=== PATIENT | male | born 1970 | race Caucasian/White ===

== ENCOUNTER 2017-12-09 16:59 | Inpatient (IN) ==
[2017-12-09] MEDS ORDERED: PHENobarb/HYOSCY/ATROPINE/SCOP 1 DOSE BOTTLE PO ONE (17:33)
--- NOTE | 2017-12-09 17:42 | Emergency Department Note ---
Chest Pain HPI - General Chief Complaint: Chest Pain Stated Complaint: Chest pain Time Seen by Provider: 12/09/17 17:00 Source: patient Mode of arrival: ambulatory Limitations: no limitations - History of Present Illness HPI Narrative: 47-year-old male presents with epigastric/chest pain more centralized 1-2 weeks. He states about a week ago he took a couple of days off of work because he was having pain and states that it comes and goes. He states today he noticed this morning that his pain was worse. He ate breakfast and took all of his pills and then vomited. He states it is pretty consistent today. It does not get worse with exertion. 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 He points to a bandlike epigastric pain. He has had some allergies recently and apparently had diarrhea yesterday that was foul-smelling according to his mother. He also has some nasal congestion and a mild cough. He has hypertension and is diabetic. He is on multiple medications for both. He also takes omeprazole. He states it is hard to sleep on his right side because he has right-sided pain when he sleeps - Related Data Home Medications Medication Instructions Recorded Confirmed Cholecalciferol (Vitamin D3) 2,000 unit PO DAILY 12/09/17 12/09/17 [Vitamin D] Diltiazem [Cardizem] 60 mg PO DAILY 12/09/17 12/09/17 Lisinopril [Zestril] 5 mg PO DAILY 12/09/17 12/09/17 Metoprolol Succinate [Toprol Xl] 25 mg PO DAILY 12/09/17 12/09/17 Omeprazole [PriLOSEC] 20 mg PO ACB 12/09/17 12/09/17 Pravastatin Sodium [Pravachol] 40 mg PO DAILY 12/09/17 12/09/17 Saxagliptin HCl [Onglyza] 5 mg PO DAILY 12/09/17 12/09/17 glipiZIDE [Glucotrol] 5 mg PO BIDAC 12/09/17 12/09/17 metFORMIN [Glucophage] 1,000 mg PO BIDCC 12/09/17 12/09/17 Allergies Allergy/AdvReac Type Severity Reaction Status Date / Time Penicillins Allergy Unknown Unknown Verified 12/09/17 17:05 Review of Systems All systems ED: reviewed and negative except as stated. Chest Pain PMH - Past Medical History Medical history: Reports: DM, hyperlipidemia, hypertension Surgical history ED: Reports: non-contributory Psychiatric history: Reports: no psych history Prior Cardiac Testing/Procedures: Stress Test (Last year) Family history: Reports: no significant family history - Social History smoking status: Former smoker Physical Exam Limitations: no limitations General appearance: alert, in no apparent distress Head: atraumatic Eye: Present: scleral icterus (mild) Neck: Present: normal inspection, full ROM Chest: Present: normal inspection, symmetric chest wall rise. Absent: tenderness Respiratory: Present: normal lung sounds bilaterally Cardiovascular: Present: regular rate, normal heart sounds Abdominal: Present: soft, tenderness, normal bowel sounds. Absent: distention, guarding, rebound, rigidity Abdominal tenderness: Present: epigastrium, moderate Extremities: Present: normal inspection, full ROM Neurological: Present: alert, oriented X3 Psychiatric: Present: normal affect, normal mood Skin: Present: warm, dry, intact Course Vital Signs Pulse Rate 89 12/09/17 17:00 Respiratory Rate 22 12/09/17 17:00 Blood Pressure 132/85 12/09/17 17:00 Pulse Oximetry (%) 95 12/09/17 17:00 Pulse Rate 80 12/09/17 18:31 Respiratory Rate 17 12/09/17 18:31 Blood Pressure 100/58 12/09/17 18:31 Pulse Oximetry (%) 95 12/09/17 18:31 Chest Pain - MDM Narrative Medical decision making narrative: Liver enzymes significantly elevated. Pending gallbladder ultrasound. He does have a history of fatty liver disease but this would not cause his bilirubin to be elevated. Dr. Richardson will do a ERCP tomorrow and Dr. Villar will do cholecystectomy on Monday. - Lab Data Result diagrams: 12/09/17 17:17 12/09/17 17:16 Lab Results 12/09/17 12/09/17 12/09/17 Range/Units 17:16 17:16 17:16 WBC (4.5-11.0) K/mcL RBC (4.50-5.90) M/mcL Hgb (13.5-16.5) g/dL Hct (41.0-55.0) % MCV (80.0-100.0) fL MCH (26.0-34.0) pg MCHC (31.0-36.0) g/dL RDW (11.5-14.5) % Plt Count (140-440) K/mcL MPV (7.4-10.4) fL Gran % (38.0-78.0) % Lymph % (Auto) (15.5-49.0) % Rush % (Auto) (1.0-12.0) % Eos % (Auto) (0.0-7.0) % Baso % (Auto) (0.0-2.0) % Gran # (1.8-8.0) K/mcL Lymph # (Auto) (1.5-4.8) K/mcL Rush # (Auto) (0.1-0.9) K/mcL Eos # (Auto) (0.0-0.7) K/mcL Baso # (Auto) (0.0-0.3) K/mcL Sodium 137 (133-145) mmol/L Potassium 3.9 (3.3-5.1) mmol/L Chloride 97 (96-108) mmol/L Carbon Dioxide 25 (22-30) mmol/L Anion Gap 15.0 (8-16) BUN 10 (6-20) mg/dl Creatinine 1.1 (0.7-1.2) mg/dl GFR Calculation 81 Glucose 139 H (70-105) mg/dL Calcium 9.6 (8.6-10.4) mg/dl Total Bilirubin 4.9 H (0.0-1.0) mg/dL AST 271 H (0-37) U/l ALT 594 H (0-40) U/l Alkaline Phosphatase 300 H (39-117) U/L Total Creatine Kinase 227 H (24-195) IU/L CK-MB (CK-2) 2.2 (0-4.9) ng/ml Myoglobin 40 (28-72) ng/ml Troponin T < 0.01 (0-0.03) ng/ml Total Protein 7.8 (5.9-8.4) gm/dL Albumin 4.5 (3.2-5.2) gm/dL Globulin 3.3 (2.2-3.7) gm/dL Albumin/Globulin Ratio 1.4 (1.0-2.3) Lipase 32 (7-60) U/L Hepatitis A IgM Ab (NEGATIVE) Hep Bs Antigen (NEGATIVE) Hep B Core IgM Ab (NEGATIVE) Hepatitis C Antibody (NEGATIVE) 12/09/17 12/09/17 Range/Units 17:16 17:17 WBC 8.1 (4.5-11.0) K/mcL RBC 5.31 (4.50-5.90) M/mcL Hgb 14.3 (13.5-16.5) g/dL Hct 43.8 (41.0-55.0) % MCV 82.4 (80.0-100.0) fL MCH 27.0 (26.0-34.0) pg MCHC 32.7 (31.0-36.0) g/dL RDW 14.0 (11.5-14.5) % Plt Count 386 (140-440) K/mcL MPV 7.8 (7.4-10.4) fL Gran % 67.2 (38.0-78.0) % Lymph % (Auto) 19.0 (15.5-49.0) % Rush % (Auto) 9.3 (1.0-12.0) % Eos % (Auto) 4.1 (0.0-7.0) % Baso % (Auto) 0.4 (0.0-2.0) % Gran # 5.4 (1.8-8.0) K/mcL Lymph # (Auto) 1.5 (1.5-4.8) K/mcL Rush # (Auto) 0.7 (0.1-0.9) K/mcL Eos # (Auto) 0.3 (0.0-0.7) K/mcL Baso # (Auto) 0 (0.0-0.3) K/mcL Sodium (133-145) mmol/L Potassium (3.3-5.1) mmol/L Chloride (96-108) mmol/L Carbon Dioxide (22-30) mmol/L Anion Gap (8-16) BUN (6-20) mg/dl Creatinine (0.7-1.2) mg/dl GFR Calculation Glucose (70-105) mg/dL Calcium (8.6-10.4) mg/dl Total Bilirubin (0.0-1.0) mg/dL AST (0-37) U/l ALT (0-40) U/l Alkaline Phosphatase (39-117) U/L Total Creatine Kinase (24-195) IU/L CK-MB (CK-2) (0-4.9) ng/ml Myoglobin (28-72) ng/ml Troponin T (0-0.03) ng/ml Total Protein (5.9-8.4) gm/dL Albumin (3.2-5.2) gm/dL Globulin (2.2-3.7) gm/dL Albumin/Globulin Ratio (1.0-2.3) Lipase (7-60) U/L Hepatitis A IgM Ab Non reactive (NEGATIVE) Hep Bs Antigen Negative (NEGATIVE) Hep B Core IgM Ab Non reactive (NEGATIVE) Hepatitis C Antibody Non reactive (NEGATIVE) - Radiology Data Radiology results reviewed: Yes I reviewed the patient's radiology results. Chest x-ray negative. Gallbladder ultrasound shows multiple stones, gallbladder wall thickening at 3.2 mm, common bile duct dilation at 6.8 mm, fatty liver - EKG Data EKG attestation: Yes I reviewed and interpreted this EKG. EKG results narrative: Normal Disposition Pt seen by [facility]/PA only: No Clinical Impression: Choledocholithiasis with acute cholecystitis Disposition: Xfer As Inpt ([facility]) Condition: Fair Referrals: Christine Villar ARNP [Primary Care Provider] -
[2017-12-09 17:49] LABS: Basophils # (Auto) 0 K/mcL (0.0-0.3); Basophils % (Auto) 0.4 % (0.0-2.0); Eosinophils # (Auto) 0.3 K/mcL (0.0-0.7); Eosinophils % (Auto) 4.1 % (0.0-7.0); Granulocytes % (Auto) 67.2 % (38.0-78.0); Lymphocytes # (Auto) 1.5 K/mcL (1.5-4.8); Mean Cell Volume 82.4 fL (80.0-100.0); Mean Corpuscular HGB Conc 32.7 g/dL (31.0-36.0); Monocytes # (Auto) 0.7 K/mcL (0.1-0.9); Monocytes % (Auto) 9.3 % (1.0-12.0); Platelet Count 386 K/mcL (140-440); RBC 5.31 M/mcL (4.50-5.90)
[2017-12-09 18:16] LABS: Creatine Kinase MB 2.2 ng/ml (0-4.9); Myoglobin 40 ng/ml (28-72)
[2017-12-09 18:22] LABS: ALT/SGPT 594 U/l (0-40); Albumin 4.5 gm/dL (3.2-5.2); Albumin/Globulin Ratio 1.4 (1.0-2.3); Alkaline Phosphatase 300 U/L (39-117); Blood Urea Nitrogen 10 mg/dl (6-20); Creatine Kinase 227 IU/L (24-195)
[2017-12-09] MEDS ORDERED: 0.9 % SODIUM CHLORIDE 1,000 ML IV SCH (19:15)
[2017-12-09 19:17] LABS: Hepatitis A Antibody IgM NON REACTIVE (NEGATIVE); Hepatitis B Core IgM NON REACTIVE (NEGATIVE); Hepatitis B Surface Antigen NEGATIVE (NEGATIVE); Hepatitis C Virus Antibody NON REACTIVE (NEGATIVE)
[2017-12-09] MEDS ORDERED: ONDANSETRON 4 MG/2 ML VIAL IV ONE (19:23)
[2017-12-09] MEDS ORDERED: ONDANSETRON 4 MG/2 ML VIAL IV PRN (20:20)
[2017-12-09] MEDS: 0.9 % SODIUM CHLORIDE 1,000 ML IV SCH (21:22)
[2017-12-09] MEDS ORDERED: DEXTROSE 50% 50 ML VIAL IV PRN (21:42)
[2017-12-09] MEDS ORDERED: DEXTROSE 31 GM ORAL.SUSP PO PRN (21:42)
[2017-12-09] MEDS ORDERED: CIPROFLOXACIN 400 MG/200 ML BAG IV ONE (21:57)
[2017-12-09] MEDS ORDERED: ZOLPIDEM 5 MG TABLET PO PRN (22:10)
--- NOTE | 2017-12-09 22:15 | General Surg History&Physical ---
History of Present Illness Patient information: Note initiated : 12/09/17 at 10:11 pm Service Date, if different from initiated Date: [] Patient: Emeka Ruiz 47 y/o M admitted on 12/09/17 for Chest pain. Chief Complaint: [] HPI: Mr. Ruiz is a 47 year old M admitted with cholecystitis, cholelithiasis,, probable common bile duct stone. The patient states that about 2 weeks ago he had tightness in his upper abdomen with associated nausea. He states that this persisted for about 3-4 days and then gradually resolved. He had vague postprandial bloating with nausea and back pain but attributed to a viral syndrome. 2 days ago he noted dark urine with decreased appetite and worsening back pain that lasted throughout the day. Today he had exacerbation of pain followed by multiple episodes of nausea with severe vomiting which prompted him to come to the emergency room. He noted that his urine has remained dark and that his stools were light in color. He also has had some itching which he attributed to allergies. On evaluation the patient is found to have a tender abdomen with ultrasound evidence of thickening of the gallbladder with multiple gallstones and mild thickening of the common duct. The distal duct cannot be evaluated. He has elevated transaminases and bilirubin. He has been seen by GI and is scheduled for ERCP in the morning. He isn't evaluated and counseled for cholecystectomy which will be scheduled after the results of the ERCP noted. Review of Systems All systems PM: reviewed and no additional remarkable complaints except as stated - Constitutional anorexia, malaise, weight loss (15 pound weight loss) - Gastrointestinal abdominal pain, bloating, dysphagia, early satiety, heartburn, nausea, vomiting Past History Past medical history: Diabetes mellitus Hypertension Hyperlipidemia Past surgical history: Right inguinal hernia repair Complex repair of facial lacerations Past social history: Employed Denies tobacco use Occasional alcohol use Denies drug use Medications and Allergies Home Medications Medication Instructions Recorded Confirmed Type Cholecalciferol (Vitamin D3) 2,000 unit PO DAILY 12/09/17 12/09/17 History [Vitamin D] Diltiazem [Cardizem] 60 mg PO DAILY 12/09/17 12/09/17 History Lisinopril [Zestril] 5 mg PO DAILY 12/09/17 12/09/17 History Metoprolol Succinate [Toprol Xl] 25 mg PO DAILY 12/09/17 12/09/17 History Omeprazole [PriLOSEC] 20 mg PO ACB 12/09/17 12/09/17 History Pravastatin Sodium [Pravachol] 40 mg PO DAILY 12/09/17 12/09/17 History Saxagliptin HCl [Onglyza] 5 mg PO DAILY 12/09/17 12/09/17 History glipiZIDE [Glucotrol] 5 mg PO BIDAC 12/09/17 12/09/17 History metFORMIN [Glucophage] 1,000 mg PO BIDCC 12/09/17 12/09/17 History Allergies Allergy/AdvReac Type Severity Reaction Status Date / Time Penicillins Allergy Unknown Unknown Verified 12/09/17 17:05 Exam Pulse Resp BP Pulse Ox 73 16 138/77 96 12/09/17 21:23 12/09/17 21:23 12/09/17 21:23 12/09/17 21:23 - General physical appearance well developed, well nourished, moderate distress, moderate pain - Eyes PERRL, normal ocular movement, icteric - ENT normal pinna, normal nares, normal mucosa, no hearing loss, no congestion - Head Head exam IM: Present: atraumatic, normal inspection, normocephalic - Neck no masses, no bruits, trachea midline, no lymphadectomy, no venous distension - Cardiovascular Cardiovascular exam IM: Present: normal rate and rhythm, RRR, +S1, +S2. Absent : gallop, JVD, systolic murmur, tachycardia - Respiratory normal expansion, normal respiratory effort, clear to percussion, clear to auscultation - Abdomen Abdomen: Present: soft, tender (tender epigastrium and right upper quadrant with fullness and right upper quadrant; hyperactive bowel sounds), bowel sounds Hernia: Present: none - Genitourinary Present: normal penis with no external lesions - Integumentary Present: no rash, no growths, no abnormal pigmentation - Neurologic Present: normal coordination, normal sensation - Musculoskeletal Present: normal gait, normal posture - Psychiatric Present: oriented to time, oriented to person, oriented to place, speech is normal, memory intact Assessment and Plan (1) Choledocholithiasis with acute cholecystitis Patient will have ERCP in the morning He is counseled for follow-up laparoscopic cholecystectomy Transaminases ,amylase and lipase will be checked in the a.m. Status: Acute (2) Diabetes mellitus We will cover with sliding scale with Humalog coverage until he can take adequate diet Status: Acute Qualifiers: Diabetes mellitus type: type 2 Diabetes mellitus care home insulin use: without intermodal customer service use Diabetes mellitus complication status: without complication Qualified Code(s): E11.9 - Type 2 diabetes mellitus without complications (3) Hypertension We will continue home medications and restart after procedures Status: Acute
[2017-12-09] MEDS: CIPROFLOXACIN 400 MG/200 ML BAG IV SCH (22:18)
[2017-12-09] MEDS ORDERED: ZOLPIDEM 5 MG TABLET ONE (22:54)
[2017-12-10] MEDS: 0.9 % SODIUM CHLORIDE 1,000 ML IV SCH ×5 (00:36→22:17)
--- NOTE | 2017-12-10 06:08 | Ultrasound Report ---
CLINICAL INFORMATION: Epigastric pain and elevated LFTs COMPARISON: None. FINDINGS: Liver is borderline enlarged and diffusely hyperechoic suggesting fatty change or other diffuse hepatocellular process. No focal hepatic lesions. There are multiple stones within the gallbladder. Gallbladder wall is slightly thickened (3.2 mm) and there is focal tenderness over the gallbladder wall. The common bile duct is slightly dilated 7 mm. Pancreas is normal. IMPRESSION: Cholelithiasis with probable early cholecystitis featuring borderline gallbladder wall thickening and focal tenderness. Mild hepatomegaly with diffuse hyperechoic parenchyma suggesting fatty change or other diffuse hepatocellular process Interpreted and Authenticated by: Kenny Jaimes 12/10/17
--- NOTE | 2017-12-10 06:10 | XRay Report ---
CLINICAL INFORMATION: Chest pain COMPARISON: None. FINDINGS: The heart size, mediastinum and pulmonary vessels are unremarkable. The lungs are clear. There are no effusions. The bones and soft tissues are within normal limits. IMPRESSION: Normal chest. Interpreted and Authenticated by: Kenny Jaimes 12/10/17
[2017-12-10 06:59] LABS: Basophils # (Auto) 0 K/mcL (0.0-0.3); Basophils % (Auto) 0.6 % (0.0-2.0); Eosinophils # (Auto) 0.2 K/mcL (0.0-0.7); Eosinophils % (Auto) 2.4 % (0.0-7.0); Granulocytes % (Auto) 63.3 % (38.0-78.0); Lymphocytes # (Auto) 1.8 K/mcL (1.5-4.8); Lymphocytes % (Auto) 23.2 % (15.5-49.0); Mean Cell Volume 83.5 fL (80.0-100.0); Mean Corpuscular HGB Conc 32.7 g/dL (31.0-36.0); Mean Corpuscular Hemoglobin 27.3 pg (26.0-34.0); Monocytes # (Auto) 0.8 K/mcL (0.1-0.9); Monocytes % (Auto) 10.5 % (1.0-12.0); Platelet Count 348 K/mcL (140-440); RBC 4.92 M/mcL (4.50-5.90); Red Cell Distribution Width 14.1 % (11.5-14.5)
[2017-12-10] MEDS ORDERED: INDOMETHACIN 50 MG SUPP.RECT PR ONE (07:48)
[2017-12-10] MEDS ORDERED: PROPOFOL 200 MG/20 ML VIAL IV ONE (07:49)
[2017-12-10] MEDS ORDERED: MIDAZOLAM 2 MG/2 ML VIAL IV ONE (07:49)
[2017-12-10 08:02] LABS: ALT/SGPT 507 U/l (0-40); Albumin 4.1 gm/dL (3.2-5.2); Albumin/Globulin Ratio 1.5 (1.0-2.3); Alkaline Phosphatase 286 U/L (39-117); Amylase 27 U/L (28-100); Bilirubin,Direct 4.6 mg/dL (0.0-0.3); Blood Urea Nitrogen 6 mg/dl (6-20); Gamma Glutamyl Transpeptidase 912 U/L (8-61); Lipase 33 U/L (7-60); Uric Acid 5.7 mg/dL (2.5-8.0)
[2017-12-10] MEDS ORDERED: PROPOFOL 40 ML IV ONE (08:07)
[2017-12-10] MEDS ORDERED: MIDAZOLAM 2 MG/2 ML VIAL ONE (08:08)
[2017-12-10] MEDS: CIPROFLOXACIN 400 MG/200 ML BAG IV SCH ×2 (08:24→22:16)
[2017-12-10] MEDS: INSULIN LISPRO 1 UNIT/0.01 ML UNIT SQ SCH ×4 (08:35→22:17)
[2017-12-10] MEDS ORDERED: DILTIAZEM 60 MG PO SCH (09:00)
[2017-12-10] MEDS ORDERED: LISINOPRIL 5 MG TABLET PO SCH (09:00)
[2017-12-10] MEDS ORDERED: METOPROLOL SUCCINATE 25 MG TAB.XL.24H PO SCH (09:00)
[2017-12-10] MEDS ORDERED: GLUCAGON,HUMAN RECOMBINANT 1 MG VIAL IV ONE (11:27)
--- NOTE | 2017-12-10 11:42 | Consultation ---
DATE OF CONSULTATION: 12/09/2017 CHIEF COMPLAINT: Right upper quadrant and epigastric pain with obstructive jaundice. HISTORY OF PRESENT ILLNESS: The patient is a 47-year-old white male who has been experiencing intermittent abdominal pain mostly at the epigastrium, a little to the right of midline during the last few weeks. He has noted dark tea colored urine for the last few days as well. He has been afebrile. His appetite has been poor at times with nausea and even some vomiting as of today. The patient has also observed in the last several days that his abdominal pain also extends into his mid back. He has not been aware of itching or jaundice other than the dark tea-colored urine. Prior to recent weeks, he had not experienced this sort of problem in the past. He describes the epigastric pain as a tight band-like feeling. It has made it difficult for him to sleep. He has been able to do his work, but he did take a couple of days off about 2 weeks ago trying to obtain relief from the discomfort. 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 He has hypertension and hyperlipidemia. PAST SURGICAL HISTORY: He had a hernia repair back in 1999. SOCIAL HISTORY: Former smoker, but not currently. No alcohol. FAMILY HISTORY: Noncontributory. PHYSICAL EXAMINATION: VITAL SIGNS: Blood pressure 138/77, pulse 73, respirations 16, temperature 98 degrees. GENERAL: The patient is awake and alert. He is cooperative and coherent. He is uncomfortable as he squirms about in bed quite a bit, mostly complaining of his back pain. His sclerae are mildly icteric. SKIN: Without stigmata of chronic liver disease. HEENT: Airway is patent. LUNGS: Clear bilaterally to auscultation. CARDIAC: Regular rate and rhythm without gallop. ABDOMEN: Soft with mild to moderate tenderness at the right upper quadrant. He has an equivocal Davis's sign, I would say. No evident ascites. No hepatosplenomegaly. EXTREMITIES: Without edema. LABORATORY STUDIES: White count is 8100, hemoglobin 14.3, platelets 386,000. BUN is 10 with creatinine 1.1, glucose 137, total bilirubin is 4.9, AST 271, ALT 594, alkaline phosphatase 300. Lipase is normal at 32. Acute hepatitis panel negative for hepatitis A, B and C. Ultrasound shows gallbladder wall thickening at 3.2 mm thick with multiple stones in the gallbladder and with some pericholecystic fluid. There is also a mildly dilated common bile duct at 6.8 mm diameter. No definite stones within the common bile duct are seen by ultrasound imaging. 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 There is evidence by ultrasound for acute cholecystitis. Clinically, this may explain his right upper quadrant and epigastric pain that radiates to his mid back. In any event, I discussed and recommended an ERCP to be done tomorrow morning at about 9:00 a.m. to clear the bile duct. Ultimately, it appears evident that the patient would require a cholecystectomy, but I am going to, of course, defer this to the general surgeon, Dr. Carolyn Villar. Further recommendations to follow based upon findings at ERCP tomorrow. I have discussed potential complications, and benefits of ERCP and the patient wishes to proceed. Thank you for this consultation. MIKE:lanre Job ID: [id number] Doc ID: [id number] Kenny Villar NP
--- NOTE | 2017-12-10 14:19 | General Surgery Progress Note ---
Subjective Patient reports: feels better, pain is less, tolerating liquids well, flatus, no bowel movement, afebrile Narrative: Note initiated : 12/10/17 at 2:16 pm Service Date, if different from initiated Date: [] Patient: Emeka Ruiz 47 y/o M admitted on 12/09/17 for Chest pain. Chief Complaint: [patient had an attempt at ERCP today but was unsuccessful according to Dr. Richardson. We will try to arrange for him to be transferred to Hospital in [place] for outpatient ERCP. MRCP is ordered to further confirm the presence of common duct stone.. In the past that was not assessed that the patient without a positive MRCP. Discussed this with the patient and his family.] Objective Temp Pulse Resp BP Pulse Ox 98.9 F 72 20 107/64 95 12/10/17 12:00 12/10/17 12:00 12/10/17 12:00 12/10/17 12:00 12/10/17 12:00 - Additional Data Intake & Output - Last 24 hours: Intake & Output 12/08/17 12/09/17 12/10/17 12/11/17 05:59 05:59 05:59 05:59 Intake Total 1050 / 1050 1440 / 1440 Output Total 625 / 625 400 / 400 Balance 425 / 425 1040 / 1040 Weight 215 lb - Labs 12/10/17 04:41 12/10/17 04:41 Diabetes panel 12/09/17 12/10/17 Range/Units 17:16 04:41 Sodium 137 138 (133-145) mmol/L Potassium 3.9 4.1 (3.3-5.1) mmol/L Chloride 97 100 (96-108) mmol/L Carbon Dioxide 25 26 (22-30) mmol/L BUN 10 6 (6-20) mg/dl Creatinine 1.1 0.9 (0.7-1.2) mg/dl Glucose 139 H 98 (70-105) mg/dL Calcium 9.6 8.9 (8.6-10.4) mg/dl AST 271 H 194 H (0-37) U/l ALT 594 H 507 H (0-40) U/l Alkaline Phosphatase 300 H 286 H (39-117) U/L Total Protein 7.8 6.9 (5.9-8.4) gm/dL Albumin 4.5 4.1 (3.2-5.2) gm/dL Triglycerides 48 (<150) mg/dl Calcium panel 12/09/17 12/10/17 Range/Units 17:16 04:41 Calcium 9.6 8.9 (8.6-10.4) mg/dl Phosphorus 2.9 (2.7-4.5) mg/dL Albumin 4.5 4.1 (3.2-5.2) gm/dL Pituitary panel 12/09/17 12/10/17 Range/Units 17:16 04:41 Sodium 137 138 (133-145) mmol/L Potassium 3.9 4.1 (3.3-5.1) mmol/L Chloride 97 100 (96-108) mmol/L Carbon Dioxide 25 26 (22-30) mmol/L BUN 10 6 (6-20) mg/dl Creatinine 1.1 0.9 (0.7-1.2) mg/dl Glucose 139 H 98 (70-105) mg/dL Calcium 9.6 8.9 (8.6-10.4) mg/dl Adrenal panel 12/09/17 12/10/17 Range/Units 17:16 04:41 Sodium 137 138 (133-145) mmol/L Potassium 3.9 4.1 (3.3-5.1) mmol/L Chloride 97 100 (96-108) mmol/L Carbon Dioxide 25 26 (22-30) mmol/L BUN 10 6 (6-20) mg/dl Creatinine 1.1 0.9 (0.7-1.2) mg/dl Glucose 139 H 98 (70-105) mg/dL Calcium 9.6 8.9 (8.6-10.4) mg/dl Total Bilirubin 4.9 H 5.8 H (0.0-1.0) mg/dL AST 271 H 194 H (0-37) U/l ALT 594 H 507 H (0-40) U/l Alkaline Phosphatase 300 H 286 H (39-117) U/L Total Protein 7.8 6.9 (5.9-8.4) gm/dL Albumin 4.5 4.1 (3.2-5.2) gm/dL Assessment and Plan (1) Choledocholithiasis with acute cholecystitis Status: Acute Assessment and plan: We'll arrange for ERCP at [facility] in [place] tomorrow. Cholecystectomy will be delayed until the ERCP is done. Current Visit: Yes (2) Diabetes mellitus Status: Acute Current Visit: Yes (3) Hypertension Status: Acute Current Visit: Yes - Time Spent With Patient Total time spent is greater than 50% in coordination of care (as documented) at patient's floor/unit and/or counseling patient:
--- NOTE | 2017-12-10 17:56 | Discharge Summary ---
Providers - Providers Patient information: Note initiated : 12/10/17 at 5:51 pm Service Date, if different from initiated Date: [] Patient: Emeka Ruiz 47 y/o M admitted on 12/09/17 for Chest pain. Chief Complaint: [] Date of admission: 12/09/17 Discharge date: 12/10/17 Attending physician: Carolyn Villar GASTROENTEROLOGY--- [facility] Hospitalization Hospital course: 47-year-old male admitted with cholecystitis cholelithiasis and choledocholithiasis. The patient presents with a two-week history of tightness in his upper abdomen with associated nausea. Initial attack resolved after about 4 days. He did have some postprandial bloating with nausea and back pain. 2 days prior to admission he noted dark urine with decreased appetite and worsening back pain. No PERSISTED THROUGHOUT THE DAY. On the day of admission he had an exacerbation of pain followed by multiple episodes of nausea with severe vomiting which prompted him to come to the emergency room. He noted that his urine had remained dark and that his stools were light in color. He also has some itching which he attributed to allergies. On evaluation in the emergency room he was found to have a tender abdomen with ultrasound evidence of thickening of the gallbladder with multiple gallstones and mild thickening of the common duct. The distal common duct could not be evaluated however. He had elevated transaminases and bilirubin. Amylase and lipase were normal. He was seen by gastroenterology and an ERCP was attempted this morning but was unsuccessful. He has been afebrile and has had a white blood count of 7.8. His bilirubin has increased from 4.9-5.8. AST is presently 1 minute for a ALT is 507 and alkaline phosphatase 286 amylase is 27 and lipase is 33. Hepatitis screen for A, B, and C are negative. The patient will need to have further evaluation for ERCP prior to cholecystectomy. He has been accepted for evaluation and treatment at [facility] in [facility]. The plan now is for him to have the ERCP and surgery at [facility]. Discharge diagnosis: acute cholecystitis with cholelithiasis Secondary discharge diagnosis: Choledocholithiasis Chronic obstructive sleep apnea Diabetes mellitus Hypertension Reason for admission: rrrecurrent abdominal pain with nausea and vomiting Procedures: Endoscopic retrograde cholangiopancreatography attempt Complications: None Exam Temp Pulse Resp BP Pulse Ox 98.9 F 72 20 107/64 95 12/10/17 12:00 12/10/17 12:00 12/10/17 12:00 12/10/17 12:00 12/10/17 12:00 - General physical appearance well developed, well nourished, no distress - Eyes PERRL, normal ocular movement, icteric - ENT normal pinna, normal nares, normal mucosa, no hearing loss, no congestion - Head Head exam IM: Present: atraumatic, normocephalic - Neck no masses, no bruits, trachea midline, no lymphadectomy, no venous distension - Cardiovascular Cardiovascular exam IM: Present: normal rate and rhythm - Respiratory normal expansion, normal respiratory effort, clear to percussion, clear to auscultation - Abdomen Abdomen: Present: soft, tender (mild epigastric and right upper quadrant tenderness without mass), bowel sounds Hernia: Present: none - Genitourinary Present: normal penis with no external lesions - Integumentary Present: no rash, no growths, no abnormal pigmentation - Neurologic Present: normal coordination, normal sensation - Musculoskeletal Present: normal gait, normal posture - Psychiatric Present: oriented to time, oriented to person, oriented to place, speech is normal, memory intact Discharge Plan - Patient/Caregiver Discharge Instructions Activity: as instructed Diet: Clear Liquid - Follow up Plan Follow up with: Christine Villar ARNP [Primary Care Provider] - Disposition: [facility] Prognosis: Good Rehab Potential: Good I certify that the patient requires SNF services.: No Overall status at discharge: patient is not back to baseline Pending Studies Resuscitation Status Full Code Diet Clear Liquid Diet Start MonDec 10 1319 Diagnostic Test (Pha) (Accu-Chek) 1 each FS ACHS [facility] Last Admin: 12/10/17 12:33 Dose: 1 each Admin: 12/10/17 08:34 Dose: 1 each Sodium Chloride (Sodium Chloride 0.9%) 1,000 mls @ 125 mls/hr IV .Q8H [facility] Last Admin: 12/10/17 13:34 Dose: Not Given Admin: 12/10/17 10:21 Dose: 125 mls/hr Infusion: 12/10/17 08:36 Dose: 125 mls/hr Admin: 12/10/17 04:06 Dose: Not Given Admin: 12/10/17 00:36 Dose: 125 mls/hr Admin: 12/09/17 21:22 Dose: Not Given Ciprofloxacin (Cipro) 400 mg in 200 mls @ 200 mls/hr IV Q12H [facility] Last Admin: 12/10/17 08:24 Dose: 200 mls/hr Admin: 12/09/17 22:18 Dose: Not Given Insulin Human Lispro (Humalog) 0 unit SQ ACHS [facility] PRN Reason: Protocol Last Admin: 12/10/17 12:33 Dose: Not Given Admin: 12/10/17 08:35 Dose: Not Given Lisinopril (Zestril) 5 mg PO DAILY [facility] Last Admin: 12/10/17 12:25 Dose: Not Given Metoprolol Succinate (Toprol Xl) 25 mg PO DAILY [facility] Last Admin: 12/10/17 12:25 Dose: Not Given Morphine Sulfate (Morphine) 4 mg IV Q2HP PRN PRN Reason: PAIN LEVEL > 6 Last Admin: 12/10/17 13:34 Dose: 4 mg Admin: 12/10/17 04:05 Dose: 4 mg Admin: 12/09/17 21:03 Dose: 2 mg Non-Formulary Medication (Diltiazem) 60 mg PO DAILY [facility] Last Admin: 12/10/17 12:25 Dose: Not Given Shift Summary 12/10/17 05:04 Shift Summary by Jessie Reyes Patient was admitted for cholecystitis, cholelithiasis, and probable common bile duct stone. ERCP is scheduled for this morning with the possibility of a cholecystectomy to follow. Patient has been NPO since midnight. VSS with elevated BP. Patient has denied nausea since admission. Administered Morphine 4mg IV x1 for upper abdominal and mid back pain. BG was 80 in ED. Will update at bedside. Initialized on 12/10/17 05:04 - END OF NOTE
--- NOTE | 2017-12-10 19:32 | Magnetic Resonance Report ---
CLINICAL INFORMATION: Right upper quadrant epigastric pain. History of cholecystitis and cholelithiasis. Recent ERCP aborted due to sleep apnea COMPARISON: None. TECHNIQUE: MRCP was performed using 3D FRFSE respiratory triggered and single-shot FSE thick slab technique. Axial T2 SSFSE and coronal SSFSE images were obtained through the upper abdomen as well. FINDINGS: The intrahepatic, common hepatic and proximal common bile duct are dilated with a CBD measuring 12 mm. There are least two stones, both 5 mm within the intrapancreatic portion of the common bile duct. Findings compatible with choledocholithiasis. There are multiple stones present within the gallbladder and mild gallbladder wall thickening. Lung bases show no abnormality. No effusions. The liver, both kidneys, adrenal glands, spleen, pancreas and aorta are normal. No free air or free fluid IMPRESSION: Choledocholithiasis 5 mm stones in the intrapancreatic portion of the CBD resulting in mild upstream dilatation Cholecystitis with multiple stones within the gallbladder Interpreted and Authenticated by: Kenny Jaimes 12/10/17
--- NOTE | 2017-12-11 10:27 | Operative Note ---
DATE OF OPERATION: 12/09/2017 PROCEDURE: Attempted ERCP. LUBE TECHNICIAN AND STEAM GIGGER: Kenny Matos MD ANESTHETIC USED: Propofol 310 mg IV and Versed 2 mg IV, glucagon 1 mg IV. PREOPERATIVE DIAGNOSIS: Obstructive jaundice. POSTOPERATIVE DIAGNOSIS: Failed ERCP. CONSENT: Prior to the procedure, the patient provided his own informed consent. The patient was evaluated and considered medically fit for endoscopy. DESCRIPTION OF PROCEDURE: With the patient in the semi-prone position, under fluoroscopy a side-viewing duodenoscope was advanced via the mouth to the esophagus under direct vision. The scope was advanced without difficulty to the second portion of the duodenum. The ampulla was difficult to identify. I had to move around several duodenal folds until I could find the ampulla. There is no bile flowing. I should note that the patient desaturated so I had to stop the procedure. I took the scope out and we aggressively suctioned him and repositioned his bite block. I then reinserted the scope. We again found the ampulla. I used some glucagon to slow down the bowel motility so I could keep the ampulla in view. On two occasions the guidewire went into the pancreatic duct. I did not achieve selective cannulation of the common bile duct. His saturations would drop down into the high 80% repeatedly, so I decided not to proceed further with the ERCP efforts. COMPLICATIONS: None immediate, although I am going to use indomethacin suppository 100 mg per rectum after the procedure attempt. PLAN: Suggest referral to [facility] for the ERCP. JCM:carmen Job ID: [id number] Doc ID: [id number] Kenny Villar NP
--- NOTE | 2017-12-31 21:23 | XRay Report ---
CLINICAL INFORMATION: Cholelithiasis by choledocholithiasis COMPARISON: None. FINDINGS: Single image centered submitted shows a very tiny amount of contrast in the expected location distal common bile duct. Apparently, duct could not be cannulated and the exam was terminated IMPRESSION: Minor contrast in the distal common bile duct. Interpreted and Authenticated by: Kenny Jaimes 12/31/17
== END 2017-12-10 19:09 | disposition short-term general hospital (02) | DRG 446 ==
LOC: ED 16:59 → MEDSUR 21:15
PROVIDERS: ADMIT Family Medicine Adult Medicine; ATTEND Family Medicine Adult Medicine